=== PATIENT | male | born 1960 | race Hispanic/Latino ===

== ENCOUNTER 2019-08-03 13:41 | Emergency (ER) | payer BC, OTHER ==
[~2019-08-03] VITALS: Ht 170.2 cm; Wt 81.6 kg
--- OUTSIDE RECORDS SUMMARY | 2019-08-03 13:45 | XMS REPORT ---
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 Allergies, Adverse Reactions, Alerts Allergy Name Allergy Type Status Severity Reaction(s) Onset Date Inactive Date Treating Clinician Comments No Known Allergies DA Active U 2018-11-12 00:00:00 Medications This patient has no known medications. Results Test Description Test Time Test Comments Text Results Atomic Results Result Comments - XR CYSTOURETHRO RETRO 2018-11-19 14:55:00 FAX: Rosalio Benitez MD [phone] [place]: St: REG Name: MARGARETH KELLY [facility] : 1960 Age/S: 58/M [address] [facility] Unit #: [id number] [place]: [place] [address] Phys: Rosalio Shannon MD Acct: [id number] Dis Date: Status: [facility] PHONE #: [phone] Exam Date: 11/19/2018 0846 FAX #: [phone] Reason: CYSTO RETRO EXAMS: CPT CODE: [id number] XR CYSTOURETHRO RETRO 81281 HISTORY: Benign prostatic hypertrophy. COMPARISON: None available. 5 fluoroscopic spot images from the OR: Opacification of both collecting system. For detailed report please see the operative report. at 5795 Reported and signed by: Gibson Bee M.D. CC: Rosalio Shannon M.D. Tech nologist: Terrie Shields(R) Trnscrd Date/Time/By: 11/19/2018 (0603) : By: [email or web address] Orig Print D/T: S: 11/19/2018 (3811) PAGE 1 Signed Report GLUBED 2018-11-19 07:33:00 GLUBED (test code=GLUBED) 171 mg/dL 74-106 Performed by certified button cutting machine operator at [facility] COMPREHENSIVE METABOLIC [id number] 16:28:00* Test Item Value Reference Range Comments SODIUM (test code=NA) 136 mmol/L 136-145 POTASSIUM (test code=K) 4.0 mmol/L 3.5-5.1 CHLORIDE (test code=CL) 104.0 mmol/L 98-107 CARBON DIOXIDE (test code=CO2) 25.0 mmol/L 21-32 ANION GAP (test code=GAP) 11.0 10-20 GLUCOSE (test code=GLU) 319 mg/dL 74-106 BLOOD UREA NITROGEN (test code=BUN) 15 mg/dL 7-18 GLOMERULAR FILTRATION RATE (test code=GFR) > 60 mL/min >=60 Estimated GFR by using Modified MDRD formula.Chronic kidney disease is defined as either kidney damageor GFR <60 mL/min/1.73 m2 for >3 months. CREATININE (test code=CREAT) 0.90 mg/dL 0.7-1.3 BUN/CREATININE RATIO (test code=BUN/CREA) 16.5 10-20 TOTAL PROTEIN (test code=PROT) 6.9 gram/dL 6.4-8.2 ALBUMIN (test code=ALB) 3.7 g/dL 3.4-5.0 GLOBULIN (test code=GLOB) 3.2 gram/dL 2.7-4.2 ALBUMIN/GLOBULIN RATIO (test code=A/G) 1.2 0.75-1.50 CALCIUM (test code=CA) 8.8 mg/dL 8.5-10.1 BILIRUBIN TOTAL (test code=BILT) 0.40 mg/dL 0.0-1.0 SGOT/AST (test code=AST) 19 IUnit/L 15-37 SGPT/ALT (test code=ALT) 35 IUnit/L 12-78 ALKALINE PHOSPHATASE TOTAL (test code=ALKP) 171 IUnit/L 45-117 Note change in reference range due to change in reagent. COMPREHENSIVE METABOLIC [id number] 16:12:00* Test Item Value Reference Range Comments SODIUM (test code=NA) 136 mmol/L 136-145 POTASSIUM (test code=K) 4.0 mmol/L 3.5-5.1 CHLORIDE (test code=CL) 104.0 mmol/L 98-107 CARBON DIOXIDE (test code=CO2) mmol/L 21-32 ANION GAP (test code=GAP) 10-20 GLUCOSE (test code=GLU) mg/dL 74-106 BLOOD UREA NITROGEN (test code=BUN) mg/dL 7-18 GLOMERULAR FILTRATION RATE (test code=GFR) mL/min >=60 CREATININE (test code=CREAT) mg/dL 0.7-1.3 BUN/CREATININE RATIO (test code=BUN/CREA) 10-20 TOTAL PROTEIN (test code=PROT) gram/dL 6.4-8.2 ALBUMIN (test code=ALB) g/dL 3.4-5.0 GLOBULIN (test code=GLOB) gram/dL 2.7-4.2 ALBUMIN/GLOBULIN RATIO (test code=A/G) 0.75-1.50 CALCIUM (test code=CA) mg/dL 8.5-10.1 BILIRUBIN TOTAL (test code=BILT) mg/dL 0.0-1.0 SGOT/AST (test code=AST) IUnit/L 15-37 SGPT/ALT (test code=ALT) IUnit/L 12-78 ALKALINE PHOSPHATASE TOTAL (test code=ALKP) IUnit/L 45-117 - XR CHEST 2 [id number] 16:04:00 FAX: Rosalio Benitez MD [phone] [place]: O St: PRE Name: MARGARETH OBREGON [facility] : [birth year] Age/S: 58/M [address] [facility] [facility] Unit #: [id number] Loc: [place] [address] Phys: Rosalio Shannon MD Acct: [id number] Dis Date: Status: PRE SDC PHONE #: [phone] Exam Date: 11/12/2018 1543 FAX #: [phone] Reason: PRE-OP EXAMS: CPT CODE: [id number] XR CHEST 2 V 29046 REASON FOR EXAM: PRE-OP Exam Order Date: 11/12/2018 3:10 PM Ordering M.D.: Rosalio hSannon MD PROCEDURE: - XR CHEST 2 V COMPARISON: None FINDINGS: The lungs are clear. There is no pleural effusion or pneumothorax. Pulmonary vascularity is within normal limits. Cardiomediastinal silhouette is normal in size for technique. The mediastinal contours are within normal limits. Musculoskeletal structures are within normal limits. The visualized upper abdomen is within normal limits. IMPRESSION: No acute cardiopu lmonary process. 19 at 1604 Reported and signed by: David Pollock MD CC: Rosalio Shannon M.D. Technologist: RT Tristen(Yoel) Trnscrd Date/Time/By: 11/12/2018 (4341) : By: [email or web address] Orig Print D/T: S: 11/12/2018 (3367) PAGE 1 Signed Report CBC W/AUTO [id number] 15:45:00* Test Item Value Reference Range Comments WHITE BLOOD CELL (test code=WBC) 8.0 K/mm3 4.5-12.5 RED BLOOD CELL (test code=RBC) 4.91 mill/mm3 4.0-5.8 HEMOGLOBIN (test code=HGB) 14.8 gram/dL 13.0-17.5 HEMATOCRIT (test code=HCT) 43.3 % 42.0-52.0 MEAN CELL VOLUME (test code=MCV) 88.2 fL 80-98 MEAN CELL HGB (test code=MCH) 30.1 picogram 27.0-33.0 MEAN CELL HGB CONCETRATION (test code=MCHC) 34.2 gram/dL 33.0-36.0 RED CELL DISTRIBUTION WIDTH (test code=RDW) 12.0 % 11.6-16.2 RED CELL DISTRIBUTION WIDTH SD (test code=RDW-SD) 39.2 fL 37.0-51.0 PLATELET COUNT (test code=PLT) 254 K/mm3 150-450 MEAN PLATELET VOLUME (test code=MPV) 10.5 fL 6.7-11.0 NEUTROPHIL % (test code=NT%) 61.6 % 39.0-69.0 IMMATURE GRANULOCYTE % (test code=IG%) 0.3 % 0.0-5.0 LYMPHOCYTE % (test code=LY%) 27.3 % 25.0-55.0 MONOCYTE % (test code=MO%) 8.2 % 0.0-10.0 EOSINOPHIL % (test code=EO%) 2.1 % 0.0-5.0 BASOPHIL % (test code=BA%) 0.5 % 0.0-1.0 NUCLEATED RBC % (test code=NRBC%) 0.0 % 0-0 NEUTROPHIL # (test code=NT#) 4.90 K/mm3 1.8-7.7 IMMATURE GRANULOCYTE # (test code=IG#) 0.02 x10 3/uL 0-0.03 LYMPHOCYTE # (test code=LY#) 2.17 K/mm3 1.0-5.0 MONOCYTE # (test code=MO#) 0.65 K/mm3 0-0.8 EOSINOPHIL # (test code=EO#) 0.17 K/mm3 0.0-0.5 BASOPHIL # (test code=BA#) 0.04 K/mm3 0.0-0.2 NUCLEATED RBC # (test code=NRBC#) 0.00 K/mm3 0.0-0.1 CBC W/AUTO [id number] 15:42:00* Test Item Value Reference Range Comments WHITE BLOOD CELL (test code=WBC) K/mm3 4.5-12.5 RED BLOOD CELL (test code=RBC) mill/mm3 4.0-5.8 HEMOGLOBIN (test code=HGB) 14.8 gram/dL 13.0-17.5 HEMATOCRIT (test code=HCT) 43.3 % 42.0-52.0 MEAN CELL VOLUME (test code=MCV) fL 80-98 MEAN CELL HGB (test code=MCH) picogram 27.0-33.0 MEAN CELL HGB CONCETRATION (test code=MCHC) gram/dL 33.0-36.0 RED CELL DISTRIBUTION WIDTH (test code=RDW) % 11.6-16.2 RED CELL DISTRIBUTION WIDTH SD (test code=RDW-SD) fL 37.0-51.0 PLATELET COUNT (test code=PLT) K/mm3 150-450 MEAN PLATELET VOLUME (test code=MPV) fL 6.7-11.0 NEUTROPHIL % (test code=NT%) % 39.0-69.0 IMMATURE GRANULOCYTE % (test code=IG%) % 0.0-5.0 LYMPHOCYTE % (test code=LY%) % 25.0-55.0 MONOCYTE % (test code=MO%) % 0.0-10.0 EOSINOPHIL % (test code=EO%) % 0.0-5.0 BASOPHIL % (test code=BA%) % 0.0-1.0 NEUTROPHIL # (test code=NT#) K/mm3 1.8-7.7 LYMPHOCYTE # (test code=LY#) K/mm3 1.0-5.0 MONOCYTE # (test code=MO#) K/mm3 0-0.8 EOSINOPHIL # (test code=EO#) K/mm3 0.0-0.5 BASOPHIL # (test code=BA#) K/mm3 0.0-0.2
[2019-08-03 14:26] LABS: STREPTOCOCCUS GRP A ANTIGEN NEGATIVE (NEGATIVE)
[2019-08-03 14:34] LABS: INFLUENZAE A&B ANTIGEN (RAPID) NEGATIVE (NEGATIVE)
--- NOTE | 2019-08-03 15:27 | Diagnostic Imaging Report ---
TECHNIQUE: Frontal view of the chest. INDICATION: ^Y ^COUGH ^[id number] ^3303 COMPARISON: None. IMPRESSION: Lines and hardware: None. Heart and mediastinum: Normal cardiomediastinal silhouette. Lungs and pleura: No focal airspace consolidation. No pleural effusion. No pneumothorax. Soft tissues and bones: No acute bony abnormality. Signed by: Emilio Ibrahim MD on 08/03/2019 3:24 PM
== END 2019-08-03 17:07 | disposition home or self-care (01) ==
LOC: ER 13:41
DX: R05 Cough (principal); J02.9 Acute pharyngitis, unspecified; I10 Essential (primary) hypertension; E11.9 Type 2 diabetes mellitus without complications
CPT/HCPCS: 71045; 83518; 87070; 87400; 87635; 99283

== ENCOUNTER 2019-10-19 21:24 | Emergency (ER) | payer BC, OTHER ==
[~2019-10-19] VITALS: Ht 170.2 cm; Wt 81.6 kg
--- NOTE | 2019-10-19 22:47 | Diagnostic Imaging Report ---
EXAMINATION: CXR 1 [facility] INDICATION: ^cough COMPARISON: 08/03/2019 FINDINGS: TUBES and LINES: None. LUNGS: Lungs are well inflated. Mild bibasilar lung scarring. Lungs are otherwise clear. There is no evidence of pneumonia or pulmonary edema. PLEURA: No pleural effusion or pneumothorax. HEART AND MEDIASTINUM: The cardiomediastinal silhouette is unremarkable. BONES AND SOFT TISSUES: No acute osseous lesion. Soft tissues are unremarkable. UPPER ABDOMEN: No free air under the diaphragm. IMPRESSION: No acute thoracic radiographic abnormality. Signed by: Coy Mahan MD on 10/19/2019 10:44 PM
[2019-10-19] MEDS ORDERED: CHLORPROMAZINE HCL INJ 25 MG/ML AMP INJ ONE (23:15)
--- NOTE | 2019-10-19 23:32 | Emergency Department Note ---
History of Present Illnes History of Present Illness Chief Complaint: General Medicine Complaints History of Present Illness This is a 59 year old male c cc hiccup. Onset (how long ago): day(s) (1) Location: hiccup Quality: dull Radiation: Reports non-radiation Onset quality: gradual Duration (how long): day(s) (2) Progression: waxing and waning Chronicity: new Context: Denies recent illness, Denies recent surgery, Denies recent immobilization, Denies recent travel, Denies trauma/injury, Denies new medications, Denies hx of DVT/PE, Denies non-compliance w/ medications, Denies other Relieving factors: none Exacerbating factors: none Associated symptoms: Reports denies other symptoms Treatments prior to arrival: none Past Medical/Family History Physician Review I have reviewed the patient's past medical and family history. Any updates have been documented here. Past Medical History Past Medical History: Hypertension, Diabetes Past Surgical History: None Review of Systems Review of Systems Constitutional: Reports no symptoms EENTM: Reports no symptoms Cardiovascular: Reports no symptoms Respiratory: Reports no symptoms Gastrointestinal: Reports as per HPI Genitourinary: Reports no symptoms Musculoskeletal: Reports no symptoms Integumentary: Reports no symptoms Neurological: Reports no symptoms Psychological: Reports no symptoms Endocrine: Reports no symptoms Hematological/Lymphatic: Reports no symptoms Physical Exam Related Data Allergies: Coded Allergies: No Known Allergies (Unverified , 08/03/19) Vital signs reviewed: Yes Physical Exam CONSTITUTIONAL Constitutional: Present well-developed, Present well-nourished HENT HENT: Present normocephalic, Present atraumatic, Present oropharynx clear/moist, Present nose normal HENT L/R: Present left ext ear normal, Present right ext ear normal EYES Eyes: Reports PERRL, Reports conjunctivae normal NECK Neck: Present ROM normal PULMONARY Pulmonary: Present effort normal, Present breath sounds normal CARDIOVASCULAR Cardiovascular: Present regular rhythm, Present heart sounds normal, Present capillary refill normal, Present normal rate GASTROINTESTINAL Abdominal: Present soft, Present nontender, Present bowel sounds normal GENITOURINARY Genitourinary: Present exam deferred SKIN Skin: Present warm, Present dry MUSCULOSKELETAL Musculoskeletal: Present ROM normal NEUROLOGICAL Neurological: Present alert, Present oriented x 3, Present no gross motor or sensory deficits PSYCHOLOGICAL Psychological: Present mood/affect normal, Present judgement normal Results Laboratory Lab results reviewed: Yes Assessment & Plan Medical Decision Making MDM hicup Reassessment Reassessment time: 23:31 Reassessment better Assessment & Plan Final Impression: (1) Hiccups Depart Disposition: HOME, SELF-CARE Medications in the ED Chlorpromazine HCl 25 mg ONCE ONCE INJ ; Start 10/19/19 at 23:15; Stop 10/19/19 at 23:16; Status UNV JORDON GODFREY MD Oct 19, 2019 23:32
[2019-10-19 23:36] VITALS: BP 145/72
[2019-10-19] MEDS ORDERED: METOCLOPRAMIDE HCL 10 MG/2ML VIAL ONE (23:36)
[2019-10-19] MEDS ORDERED: IBUPROFEN 200 MG TAB ONE (23:44)
[2019-10-19] MEDS ORDERED: METOCLOPRAMIDE HCL 10 MG/2ML VIAL IM ONE (23:45)
[2019-10-20] MEDS ORDERED: IBUPROFEN 400 MG TAB PO ONE
== END 2019-10-19 23:48 | disposition home or self-care (01) ==
LOC: FSED 21:24
DX: R06.6 Hiccough (principal); I10 Essential (primary) hypertension; E11.9 Type 2 diabetes mellitus without complications
CPT/HCPCS: 71045; 99283; J2765

== ENCOUNTER 2019-10-26 19:29 | Emergency (ER) | payer BC, OTHER ==
--- NOTE | 2019-10-26 23:28 | NUR ---
PT UP TO RESTROOM
--- NOTE | 2019-10-27 01:11 | NUR ---
RESTING QUIETLY. AWAITING RAD RESULTS
--- NOTE | 2019-10-27 01:18 | Diagnostic Imaging Report ---
EXAM: Abdomen Radiograph 1 View INDICATION: ^constipation, abdominal pain ^20191026 ^9620 COMPARISON: None FINDINGS: Subtle bibasilar lung opacities, partially visualized No lines or tubes. Large volume of stool in the colon. No dilated loops of small bowel. Punctate calcifications in the left mid perimedian abdomen could are likely vascular in origin. No abnormal soft tissue masses. No pneumoperitoneum. No acute osseous abnormality. Mild degenerative changes in the lumbar spine and pelvis. Left for convex curvature of the lumbar spine. IMPRESSION: Large colonic stool volume as seen with constipation. Subtle bibasilar lung opacities, partially visualized, can be due to atelectasis or pneumonia. Recommend chest radiograph. Signed by: Donovan Norman DO on 10/27/2019 1:14 AM
--- NOTE | 2019-10-27 02:47 | Diagnostic Imaging Report ---
EXAMINATION: CXR 2 VIEW - HOPD INDICATION: Upper abdominal pain COMPARISON: Day prior abdominal x-ray, Chest x-ray 10/19/2019 FINDINGS: TUBES and LINES: None. LUNGS: Normal lung volumes. Multifocal haziness in the mid to lower lungs bilaterally. PLEURA: No pleural effusion or pneumothorax. HEART AND MEDIASTINUM: The cardiomediastinal silhouette is unremarkable. BONES AND SOFT TISSUES: No acute osseous lesion. Soft tissues are unremarkable. UPPER ABDOMEN: No free air under the diaphragm. IMPRESSION: Multifocal pneumonia, likely viral. Signed by: Donovan Norman DO on 10/27/2019 2:44 AM
--- NOTE | 2019-10-27 02:59 | Emergency Department Note ---
History of Present Illnes History of Present Illness Chief Complaint: Abdominal Complaints History of Present Illness This is a 59 year old male, with a history of diabetes, who presents with a six-day history of constipation. Or the patient was seen here on 10/19/2019 and treated with chlorpromazine for the hiccups. Patient states that he took that medication for 5 days and stopped, because he thought that this medication might be causing his constipation. Patient typically has 1-2 bowel movements per day. He denies any abdominal pain, nausea, or vomiting. He states he's been eating and drinking normally, and has had no fever, chills, cough, or upper respiratory symptoms. He does state that his tested positive for Covid 19 pneumonia, and she was in the hospital for several days due to requiring oxygen. This was within the last 2 weeks, and she is currently at home and her covering. Patient had a negative chest x-ray here on 10/19/2019, as part of his evaluation for the hiccups. Patient states he was prescribed a Z-Stephen, at that visit, and is already completed it. 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 This does have a side effect of constipation.); Denies trauma/injury Relieving factors: none Exacerbating factors: none Associated symptoms: Denies cough, Denies fever/chills, Denies loss of appetite, Denies nausea/vomiting, Denies shortness of breath, Denies weakness Treatments prior to arrival: none Past Medical/Family History Physician Review I have reviewed the patient's past medical and family history. Any updates have been documented here. Past Medical History Recent Fever: No Clinical Suspicion of Infectio: No New/Unexplained Change in Ment: No Past Medical History: Diabetes Past Surgical History: None Social History Smoking Cessation: Former smoker Alcohol Use: None Any Illegal Drug Use: No Physically hurt or threatened: No Family History Family history of heart diseas: No Other Last Tetanus: UNKNOWN Any Pre-Existing Lines (PICC,: No Review of Systems Review of Systems Constitutional: Denies chills, Denies fever, Denies weakness Cardiovascular: Denies chest pain, Denies palpitations Respiratory: Denies cough, Denies pain on inspiration, Denies dyspnea, Denies dyspnea on exertion Gastrointestinal: Reports constipation; Denies abdominal pain, Denies nausea, Denies vomiting Genitourinary: Denies dysuria, Denies frequency Musculoskeletal: Denies back pain, Denies muscle pain Integumentary: Denies change in color, Denies lesions Neurological: Denies headache, Denies weakness Review of other systems: All other systems negative Physical Exam Related Data Allergies: Coded Allergies: No Known Allergies (Unverified , 08/03/19) Triage Vital Signs Vital Signs Date Time Temp Pulse Resp B/P (MAP) Pulse Ox O2 Delivery O2 Flow Rate FiO2 10/26/19 21:55 98.1 96 18 148/87 95 Room Air Vital signs reviewed: Yes Physical Exam CONSTITUTIONAL Constitutional: Present well-developed, Present well-nourished; Absent distressed, Absent ill appearing HENT HENT: Present normocephalic, Present atraumatic, Present oropharynx clear/moist, Present nose normal HENT L/R: Present left ext ear normal, Present right ext ear normal EYES Eyes: Reports PERRL, Reports conjunctivae normal NECK Neck: Present ROM normal PULMONARY Pulmonary: Present effort normal; Absent respiratory distress, Absent chest tenderness, Absent other (slight diminished breath sounds at the bases;) CARDIOVASCULAR Cardiovascular: Present regular rhythm, Present heart sounds normal, Present capillary refill normal, Present normal rate GASTROINTESTINAL Abdominal: Present soft, Present bowel sounds normal, Present tender (mild lower abdominal tenderness to palpation, with no rebound or guarding.); Absent guarding, Absent rebound GENITOURINARY Genitourinary: Present exam deferred SKIN Skin: Present warm, Present dry; Absent rash MUSCULOSKELETAL Musculoskeletal: Present ROM normal; Absent swelling NEUROLOGICAL Neurological: Present alert, Present oriented x 3; Absent no gross motor or sensory deficits, Absent cranial nerve deficit PSYCHOLOGICAL Psychological: Present mood/affect normal, Present behavior normal Results Laboratory Laboratory CBC - nl except for WBC = 10.7, plt = 492; CMP - nl except for glucose = 316; alk phos - 139, ALT = 128, AST = 112, ALB = 3.1; Lab results reviewed: Yes Imaging Imaging results reviewed: Yes Impressions [place] [address] Patient Name: MARGARETH KELLY MR #: [id number] : 1960 Age/Sex: 59/M Req #: [id number] Adm Physician: Ordered by: SOLO LANG MD Report #: [id number] Location: [facility] Room/Bed: Procedure: [id number] HOPD/ABDOMEN COMPLETE - HOPD Exam Date: 10/26/19 Exam Time: 2354 REPORT STATUS: Signed EXAM: Abdomen Radiograph 1 View INDICATION: ^constipation, abdominal pain ^20191026 ^2354 COMPARISON: None FINDINGS: Subtle bibasilar lung opacities, partially visualized No lines or tubes. Large volume of stool in the colon. No dilated loops of small bowel. Punctate calcifications in the left mid perimedian abdomen could are likely vascular in origin. No abnormal soft tissue masses. No pneumoperitoneum. No acute osseous abnormality. Mild degenerative changes in the lumbar spine and pelvis. Left for convex curvature of the lumbar spine. IMPRESSION: Large colonic stool volume as seen with constipation. Subtle bibasilar lung opacities, partially visualized, can be due to atelectasis or pneumonia. Recommend chest radiograph. Signed by: Donovan Norman DO on 10/27/2019 1:14 AM Dictated By: DONOVAN NORMAN DO 3 Transcribed By: AUGUSTO on 10/27/19113 [place] [address] Patient Name: MARGARETH KELLY MR #: [id number] : 1960 Age/Sex: 59/M Req #: [id number] [facility] Physician: Ordered by: SOLO LANG MD Report #: [id number] Location: [facility] Room/Bed: Procedure: [id number] HOPD/CXR 2 VIEW - HOPD Exam Date: 10/27/19 Exam Time: 0133 REPORT STATUS: Signed EXAMINATION: CXR 2 VIEW - HOPD INDICATION: Upper abdominal pain COMPARISON: Day prior abdominal x-ray, Chest x-ray 10/19/2019 FINDINGS: TUBES and LINES: None. LUNGS: Normal lung volumes. Multifocal haziness in the mid to lower lungs bilaterally. PLEURA: No pleural effusion or pneumothorax. HEART AND MEDIASTINUM: The cardiomediastinal silhouette is unremarkable. BONES AND SOFT TISSUES: No acute osseous lesion. Soft tissues are unremarkable. UPPER ABDOMEN: No free air under the diaphragm. IMPRESSION: Multifocal pneumonia, likely viral. Signed by: Donovan Norman DO on 10/27/2019 2:44 AM Dictated By: DONOVAN NORMAN DO 3 Transcribed By: AUGUSTO on 10/27/19243 COPY TO: SOLO LANG MD~ Diagnostics Tests Diagnostic test(s) reviewed: Yes Assessment & Plan Medical Decision Making MDM COnstipation, likley drug induced by Chlorproperazine. Recommend that you drink 1-bottle of Magnesium Citrate tonight, and finish it within 30 minutes. You may serve it over ice or mix it with Sprite or Gingerale Once you have completed the bottle, drink 16 oz of water, also withing 30 minutes, or less. It is VERY important that you remain well hydrated, if you pass a large amount of watery stools. Increase water, Pedialyte or G2 Gatorade. If no stool by tomorrow moring, you may try a Dulcolax suppository, 1 applied in the rectum. - Complete the Z-pack, for probable Covid Pneumonia. Steroids were not p rescribed, due to patient's uncontrolled diabetes, and he is relatively asymptomatic from a pulmonary standpoint. His presentation this evening was for constipation and not for respiratory symptoms. The bibasilar infiltrates were incidentally seen on his abdominal x-ray. Patient's vital signs are good, and he is in no acute distress. - Self Quarantine x 14 days for probable COVID pneumonia - Return to the ER, if you have difficulty breathing or shortness of breath. - Follow-up with your PCP, in 3 weeks, to re-check your labs and your symptoms, as well as your blood sugar and liver enzymes. Patient voiced understanding the plan. - Work on optimizing blood sugar control, which will help you to recover from the infection. Assessment & Plan Final Impression: (1) Pneumonia due to COVID-19 virus (2) Constipation (3) Elevated liver enzymes (4) Uncontrolled diabetes mellitus Depart Disposition: HOME, SELF-CARE Last Vital Signs Date Time Temp Pulse Resp B/P (MAP) Pulse Ox O2 Delivery O2 Flow Rate FiO2 10/26/19 21:55 98.1 96 18 148/87 95 Room Air Medications in the ED Discharge meds: - Z-pack - Magnesium Citrate SOLO LANG MD Oct 27, 2019 02:58
--- NOTE | 2019-10-27 03:11 | NUR ---
DC'D IVSL WITHOUT DIFF. NO REDNESS/SWELLING/BLEEDING TO SITE. CATH INTACT
[2019-10-27 03:24] VITALS: BP 142/82
== END 2019-10-27 03:24 | disposition home or self-care (01) ==
LOC: FSED 21:50
DX: U07.1 COVID-19 (principal); J18.9 Pneumonia, unspecified organism; E11.65 Type 2 diabetes mellitus with hyperglycemia; K59.00 Constipation, unspecified; R74.8 Abnormal levels of other serum enzymes
CPT/HCPCS: 71046; 74022; 80053; 85025; 99283